=== PATIENT | male | born 1970 | race Caucasian/White ===

== ENCOUNTER 2017-07-13 09:09 | Day surgery (SDC) | payer MEDICAID ==
[2017-07-05 13:35] VITALS: BMI 27.1
[2017-07-13 10:01] VITALS: O2SAT 98
[2017-07-13] MEDS ORDERED: Lactated Ringer's 500 ML IV ONE (10:53)
[2017-07-13] MEDS ORDERED: Lactated Ringer's 500 ML IV SCH (11:00)
[2017-07-13] MEDS ORDERED: Propofol 10 mg/ml Inj (20 ML) ONE (11:01)
[2017-07-13] MEDS ORDERED: Midazolam 2 MG/2 ML VIAL ONE (11:01)
[2017-07-13 11:29] VITALS: TEMP 98
[2017-07-13 12:48] VITALS: RESP 13
[2017-07-13 12:51] VITALS: BP 108/72; PULSE 81
== END 2017-07-13 12:21 | disposition home or self-care (01) ==
LOC: C.ENDO 09:09
PROVIDERS: ATTEND Internal Medicine Gastroenterology
DX: R10.13 Epigastric pain (principal); K44.9 Diaphragmatic hernia without obstruction or gangrene; K29.70 Gastritis, unspecified, without bleeding; F17.210 Nicotine dependence, cigarettes, uncomplicated
CPT/HCPCS: 43239; 88305; 88313; 88342; J2250; J2704; J7120